=== PATIENT | male | born 2000 | race Caucasian/White ===

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

== ENCOUNTER 2019-12-27 14:43 | Outpatient (CLI) | payer OTHER | END 2019-12-27 14:44 | disposition EMS.NT | LOC: EMS 14:43 | PROVIDERS: ATTEND Surgery | DX: Z04.1 Encounter for examination and observation following transport accident (principal) ==